=== PATIENT | female | born 1985 | race Caucasian/White ===

== ENCOUNTER 2017-12-19 09:03 | Emergency (ER) | payer BC ==
[~2017-12-19] VITALS: Ht 157.5 cm; Wt 55.3 kg
[2017-12-19 09:03] VITALS: BP_SYST 130
[2017-12-19] MEDS ORDERED: DIPH-TET-PERTUS Vaccine 0.5 ML VIAL (ADACEL) I.M. ONE (10:00)
[2017-12-19 10:50] VITALS: BP_SYST 130
== END 2017-12-19 10:50 | disposition home or self-care (01) ==
LOC: SED 09:03
DX: L30.9 Dermatitis, unspecified (principal); R03.0 Elevated blood-pressure reading, without diagnosis of hypertension; Z88.2 Allergy status to sulfonamides
CPT/HCPCS: 90715; 99283